=== PATIENT | male | born 1995 | race Two or more races ===

== ENCOUNTER 2019-09-12 22:06 | Emergency (ER) | payer SELFPAY ==
[~2019-09-12] VITALS: Ht 175.3 cm; Wt 72.6 kg
[2019-09-12 22:12] VITALS: BP 108/63
[2019-09-13] MEDS ORDERED: HYDROcodone-ACET 10/325MG TAB PO ONE (03:45)
== END 2019-09-13 05:40 | disposition home or self-care (01) ==
LOC: ER 22:08
DX: S32.039A Unspecified fracture of third lumbar vertebra, initial encounter for closed fracture (principal); S32.049A Unspecified fracture of fourth lumbar vertebra, initial encounter for closed fracture; W19.XXXA Unspecified fall, initial encounter; Y93.89 Activity, other specified; Y92.89 Other specified places as the place of occurrence of the external cause; Y99.8 Other external cause status
CPT/HCPCS: 72100; 72131; 94761